=== PATIENT | female | born 1990 | race African-American/Black ===

== ENCOUNTER 2017-01-24 09:30 | Emergency (ER) | payer MEDICAID ==
[~2017-01-24] VITALS: Ht 165.1 cm; Wt 110.0 kg
[~2017-01-24 09:30] MED LIST: IBUP800T23 PO; METH500T3 PO
[2017-01-24 09:34] VITALS: BP 139/82; PULSE 97; RESP 18; TEMP 98.7; O2SAT 97
--- NOTE | 2017-01-24 09:50 | PD ---
HPI Chief Complaint: Pain: Acute or Chronic Time Seen by Provider: 09:50 Travel History International Travel<30 days: No Contact w/Intl Traveler<30days: No Traveled to known affect area: No History of Present Illness HPI 26-year-old female came to the emergency room with history of lower back pain radiating to both legs down coming from the front of the legs. She is also complaining of bilateral lower abdominal pain associated with this. Pain worsens when she is standing for too long. It's better when she is laying down. This has been going on for past 1 week. No history of fever or chills. No history of trauma. Vital signs otherwise stable. [facility] Past Medical History Narrative Medical List of her past medical, surgical, social and family history is reviewed from the nursing note. Diminished Hearing: No Immunizations Current: No ?: Unknown : 1 Para: 1 Miscarriage: 0 : 0 Past Surgical History Section: Yes (X 1) Social History Alcohol Use: No Tobacco Use: No Substance Use: No (HX OF MARIJUANA) Allergies-Medications (Allergen,Severity, Reaction): Coded Allergies: No Known Allergies (Verified , 01/24/17) Comments No known drug allergies. Reported Meds & Prescriptions Reported Meds & Active Scripts Active Flexeril (Cyclobenzaprine HCl) 5 Mg Tab 5 Mg PO TID Ibuprofen 600 Mg Tab 600 Mg PO Q6H PRN Methocarbamol 500 Mg Tab 500 Mg PO QID PRN Ibuprofen 800 Mg Tab 800 Mg PO Q6H PRN Narrative Medication List of her home medications reviewed from the nursing note. Review of Systems Except as stated in HPI: all other systems reviewed are Neg Physical Exam Narrative GENERAL: Awake, alert, morbidly obese, no obvious distress SKIN: Focused skin assessment warm/dry. HEAD: Atraumatic. Normocephalic. EYES: Pupils equal and round. No scleral icterus. No injection or drainage. ENT: No nasal bleeding or discharge. Mucous membranes pink and moist. NECK: Trachea midline. No JVD. CARDIOVASCULAR: Regular rate and rhythm. No murmur appreciated. RESPIRATORY: No accessory muscle use. Clear to auscultation. Breath sounds equal bilaterally. GASTROINTESTINAL: Abdomen soft, non-tender, nondistended. Hepatic and splenic margins not palpable. MUSCULOSKELETAL: No obvious deformities. No clubbing. No cyanosis. No edema. NEUROLOGICAL: Awake and alert. No obvious cranial nerve deficits. Motor grossly within normal limits. Normal speech. PSYCHIATRIC: Appropriate mood and affect; insight and judgment normal. Data Data Last Documented VS Vital Signs Date Time Temp Pulse Resp B/P Pulse Ox O2 Delivery O2 Flow Rate FiO2 01/24/17 09:51 18 01/24/17 09:34 98.7 97 139/82 97 Orders Urinalysis - C+S If Indicated (01/24/17 09:58) Ketorolac Inj (Toradol Inj) (01/24/17 10:00) Morphine Inj (Morphine Inj) (01/24/17 10:00) Orphenadrine Inj (Norflex Inj) (01/24/17 10:00) Labs Laboratory Tests Test 01/24/17 10:00 Urine Color LIGHT-YELLOW Urine Turbidity CLEAR Urine pH 7.0 Urine Specific [place] 1.019 Urine Protein NEG mg/dL Urine Glucose (UA) NEG mg/dL Urine Ketones NEG mg/dL Urine Occult Blood MOD Urine Nitrite NEG Urine Bilirubin NEG Urine Urobilinogen LESS THAN 2.0 MG/DL Urine Leukocyte Esterase MOD Urine RBC 15 /hpf Urine WBC 4 /hpf Urine Squamous Epithelial 6 /hpf Cells Urine Mucus FEW /lpf Microscopic Urinalysis Comment CULT NOT INDICATED MDM Medical Decision Making Medical Screen Exam Complete: Yes Emergency Medical Condition: Yes Medical Record Reviewed: Yes Differential Diagnosis Lumbar radiculopathy, UTI, low back pain Narrative Course 10:20 AM UA showed some blood. I asked the patient if she could be having her period and she said she might be starting to. Patient was given pain medications IM. She has her friend who is going to come and pick her up. She' ll be discharged home on prescription and some restriction for work. Procedures EKG Prior to Arrival: No Diagnosis Primary Impression: Low back pain radiating to lower extremity Referrals: Primary Care Physician 1 week Departure Forms: School Release, Return to School Date: January 27, 2017 Tests/Procedures Additional Instructions: Please return to the ER if symptoms worsen or any other new concerns. Otherwise get some bedrest for next couple days. Be sure to sleep on a firm surface. Do not lift anything heavy that's more than 2-3 pounds. Follow-up with your primary care in couple days. Take the medications as per the prescription direction. Med/Other Pt SpecificInfo: Prescription(s) given Scripts Cyclobenzaprine (Flexeril)5 Mg Tab5 Mg PO TID #15 TAB Ref 0 Prov:Pratibha Tucker MD 01/24/17 Ibuprofen 600 Mg [id number] Mg PO Q6H PRN (Pain/Inflammation) #40 TAB Ref 0 Prov:Pratibha Tucker MD 01/24/17 Disposition: 01 DISCHARGE HOME Condition: Stable Pratibha Tucker MD January 24, 2017 09:50
[2017-01-24] MEDS ORDERED: MORPHINE SULFATE 8 MG/ML INJ IM ONE (10:00)
[2017-01-24] MEDS ORDERED: ORPHENADRINE INJ 60 MG/2 ML AMP IM ONE (10:00)
[2017-01-24] MEDS ORDERED: KETOROLAC TROMETHAMINE 60 MG/2 ML (IM) VIAL IM ONE (10:00)
[2017-01-24 10:25] LABS: BLOOD, URINE MOD (NEG); COMMENT (UR) CULT NOT INDICATED; CULTURE IF INDICATED CULT NOT INDICATED; GLUCOSE,URINE NEG (NEG); KETONE, URINE NEG (NEG); MUCUS URINE FEW /lpf (OCC); NITRITE,URINE NEG (NEG); SQUAMOUS EPITHELIAL CELL URINE 6 /hpf (0-5); URINE COLOR LIGHT-YELLOW (YELLW/STRAW)
[2017-01-24] MEDS ORDERED: IBUP-232 PO (10:30)
[2017-01-24] MEDS ORDERED: CYCL5TAB PO (10:30)
== END 2017-01-24 10:43 | disposition home or self-care (01) ==
LOC: NEPD 09:30
DX: M54.5 Low back pain (principal); M79.662 Pain in left lower leg; M79.661 Pain in right lower leg
CPT/HCPCS: 81001; 96372; 99284; J1885; J2270; J2360

== ENCOUNTER 2017-06-05 11:11 | Emergency (ER) | payer MEDICAID ==
[~2017-06-05] VITALS: Ht 160 cm; Wt 100.0 kg
[~2017-06-05 11:11] MED LIST changes: +CYCL5TAB PO; +IBUP-232 PO
[2017-06-05 11:12] VITALS: BP 145/87; PULSE 98; RESP 17; TEMP 98.8; O2SAT 98
--- NOTE | 2017-06-05 11:32 | PD ---
HPI Chief Complaint: Complaint Time Seen by Provider: 11:21 Travel History International Travel<30 days: No Contact w/Intl Traveler<30days: No Traveled to known affect area: No History of Present Illness HPI The patient is a 26-year-old [place] female who presents emergency department for lower abdominal pain and cramping. The patient states she is currently starting her menstrual cycle, has a small amount of spotting, and has some bilateral lower pelvic cramping. She also complains of mild dysuria without any frequency or urgency. She denies any abnormal vaginal discharge. Last mental cycle was one month ago, she is currently starting her new menstrual cycle. She denies any nausea, vomiting, diarrhea, or change in bowel habits. Symptoms are moderate, there are no current alleviating or exacerbating factors. She does have a history of previous section. PFSH Past Medical History Diminished Hearing: No Immunizations Current: No ?: Not : 1 Para: 1 Miscarriage: 0 : 0 Past Surgical History Section: Yes (X 1) Social History Alcohol Use: No Tobacco Use: No Substance Use: No (HX OF MARIJUANA) Allergies-Medications (Allergen,Severity, Reaction): Coded Allergies: No Known Allergies (Verified , 01/24/17) Reported Meds & Prescriptions Reported Meds & Active Scripts Active Flexeril (Cyclobenzaprine HCl) 5 Mg Tab 5 Mg PO TID Ibuprofen 600 Mg Tab 600 Mg PO Q6H PRN Methocarbamol 500 Mg Tab 500 Mg PO QID PRN Ibuprofen 800 Mg Tab 800 Mg PO Q6H PRN Review of Systems Except as stated in HPI: all other systems reviewed are Neg General / Constitutional: No: Fever Gastrointestinal: No: Nausea, Vomiting, Diarrhea, Abdominal Pain Genitourinary: Positive: Dysuria, Pelvic Pain, Vaginal Bleeding (spotting), No : Discharge Physical Exam Narrative GENERAL: Awake, alert, nontoxic-appearing 26-year-old female who appears her stated age and is in no acute respiratory distress. SKIN: Focused skin assessment warm/dry. HEAD: Atraumatic. Normocephalic. EYES: No injection or drainage. ENT: No nasal bleeding or discharge. Mucous membranes pink and moist. NECK: Trachea midline. No JVD. CARDIOVASCULAR: Regular rate and rhythm. No murmur appreciated. RESPIRATORY: No accessory muscle use. Clear to auscultation. Breath sounds equal bilaterally. GASTROINTESTINAL: Abdomen soft, non-tender, nondistended. Minimal suprapubic tenderness. Back: No CVA tenderness. MUSCULOSKELETAL: No obvious deformities. No clubbing. No cyanosis. No edema. NEUROLOGICAL: Awake and alert. No obvious cranial nerve deficits. Motor grossly within normal limits. Normal speech. PSYCHIATRIC: Appropriate mood and affect; insight and judgment normal. Data Data Last Documented VS Vital Signs Date Time Temp Pulse Resp B/P (MAP) Pulse Ox O2 Delivery O2 Flow Rate FiO2 06/05/17 11:12 98.8 98 17 145/87 (106) 98 Orders Orders Urinalysis - C+S If Indicated (06/05/17 11:29) Ed Urine Pregnancytest Poc (06/05/17 11:29) Urine Culture (06/05/17 11:39) Labs Laboratory Tests Test 06/05/17 11:39 Urine Color YELLOW Urine Turbidity HAZY Urine pH 5.5 Urine Specific [place] 1.031 Urine Protein 30 mg/dL Urine Glucose (UA) NEG mg/dL Urine Ketones NEG mg/dL Urine Occult Blood NEG Urine Nitrite NEG Urine Bilirubin NEG Urine Urobilinogen 2.0 MG/DL Urine Leukocyte Esterase MOD Urine RBC 2 /hpf Urine WBC 17 /hpf Urine Squamous Epithelial Cells 20 /hpf Urine Bacteria FEW /hpf Urine Mucus MANY /lpf Urine Trichomonas OCC Microscopic Urinalysis Comment CULTURE INDICATED MDM Medical Decision Making Medical Screen Exam Complete: Yes Emergency Medical Condition: Yes Medical Record Reviewed: Yes Interpretation(s) Laboratory Tests Test 06/05/17 11:39 Urine Color YELLOW Urine Turbidity HAZY Urine pH 5.5 Urine Specific [place] 1.031 Urine Protein 30 mg/dL Urine Glucose (UA) NEG mg/dL Urine Ketones NEG mg/dL Urine Occult Blood NEG Urine Nitrite NEG Urine Bilirubin NEG Urine Urobilinogen 2.0 MG/DL Urine Leukocyte Esterase MOD Urine RBC 2 /hpf Urine WBC 17 /hpf Urine Squamous Epithelial Cells 20 /hpf Urine Bacteria FEW /hpf Urine Mucus MANY /lpf Urine Trichomonas OCC Microscopic Urinalysis Comment CULTURE INDICATED Differential Diagnosis Differential diagnosis includes UTI, PID, cervicitis, , ectopic , dysmenorrhea. Narrative Course A UA was sent to lab and bedside UA test was obtained. UA reveals leukocyte esterase and 17 WBCs consistent with UTI. Also reveals trichomonas. Patient will be treated with Flagyl and Bactrim. She is advised to follow-up with a primary physician and return if symptoms worsen or progress. Diagnosis Primary Impression: Trichomonas infection Additional Impression: UTI (urinary tract infection) Qualified Codes: N30.00 - Acute cystitis without hematuria Patient Instructions: General Instructions Additional Instructions: Medications as directed. Follow-up with your primary physician. Return if symptoms worsen or progress. Med/Other Pt SpecificInfo: Prescription(s) given Scripts Metronidazole (Flagyl) 500 Mg Tab 500 MG PO BID for Infection for 7 Days, #14 TAB 0 Refills Prov: Eleazar Johnston MD 06/05/17 Sulfamethoxazole-Trimethoprim (Bactrim DS) 800-160 Mg Tab 1 TAB PO BID for Infection, #14 TAB 0 Refills Prov: Eleazar Johnston MD 06/05/17 Disposition: 01 DISCHARGE HOME Condition: Stable Eleazar Johnston MD Jun 05, 2017 11:32
[2017-06-05 12:01] LABS: BLOOD, URINE NEG (NEG); GLUCOSE,URINE NEG (NEG); KETONE, URINE NEG (NEG); MUCUS URINE MANY /lpf (OCC); NITRITE,URINE NEG (NEG); PH, URINE 5.5 (5.0-8.5); SQUAMOUS EPITHELIAL CELL URINE 20 /hpf (0-5); URINE COLOR YELLOW (YELLW/STRAW)
[2017-06-05 12:02] LABS: BACTERIA, URINE FEW /hpf; COMMENT (UR) CULTURE INDICATED; CULTURE IF INDICATED CULTURE INDICATED
[2017-06-05] MEDS ORDERED: METR-1 PO (12:14)
[2017-06-05] MEDS ORDERED: BACT800T5 PO (12:14)
== END 2017-06-05 12:27 | disposition home or self-care (01) ==
LOC: NEPD 11:11
DX: A59.9 Trichomoniasis, unspecified (principal); N30.00 Acute cystitis without hematuria; R10.30 Lower abdominal pain, unspecified
CPT/HCPCS: 81001; 84703; 87086; 99284

== ENCOUNTER 2017-07-08 10:10 | Emergency (ER) | payer OTHER, MEDICAID ==
[~2017-07-08] VITALS: Ht 160 cm; Wt 95.5 kg
[~2017-07-08 10:10] MED LIST changes: +BACT800T5 PO; +METR-1 PO
[2017-07-08 10:11] VITALS: BP 130/70; PULSE 73; RESP 14; TEMP 98.2; O2SAT 98
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
[2017-07-08] MEDS ORDERED: IBUP-232 PO (10:48)
[2017-07-08] MEDS ORDERED: ROBA750T PO (10:48)
== END 2017-07-08 14:12 | disposition home or self-care (01) ==
LOC: NEPK 10:10
DX: S16.1XXA Strain of muscle, fascia and tendon at neck level, initial encounter (principal); S20.01XA Contusion of right breast, initial encounter; S00.512A Abrasion of oral cavity, initial encounter; V49.49XA Driver injured in collision with other motor vehicles in traffic accident, initial encounter; Y92.410 Unspecified street and highway as the place of occurrence of the external cause
CPT/HCPCS: 99283

== ENCOUNTER 2017-11-28 07:38 | Emergency (ER) | payer MEDICAID ==
[~2017-11-28] VITALS: Ht 160 cm; Wt 90.0 kg
[~2017-11-28 07:38] MED LIST changes: -BACT800T5 PO; -CYCL5TAB PO; -IBUP800T23 PO; -METH500T3 PO; -METR-1 PO; +ROBA750T PO
[2017-11-28 07:41] VITALS: BP 144/89; PULSE 88; RESP 15; TEMP 98.6; O2SAT 100
[2017-11-28] MEDS ORDERED: LIDOCAINE HCL 1% 50 ML VIAL IM ONE (08:15)
[2017-11-28] MEDS ORDERED: AZITHROMYCIN PWD FOR SUSP 1 GM PACKET PO ONE (08:15)
[2017-11-28] MEDS ORDERED: cefTRIAXone 250 MG VIAL IM ONE (08:15)
--- NOTE | 2017-11-28 08:28 | PD ---
HPI Chief Complaint: Cold / Flu Symptoms Time Seen by Provider: 08:05 Travel History International Travel<30 days: No Contact w/Intl Traveler<30days: No Traveled to known affect area: No History of Present Illness HPI 27-year-old female presents to the emergency room for evaluation of cold symptoms for the past 3 days. Patient got sent home early from work today because of her symptoms. They include nonproductive cough, congestion, sore throat, bilateral eye itchiness, and runny nose. She has not taken anything [id number] for her symptoms. She denies fever, chills, nausea, vomiting, or body aches. States she would also like to be checked for an STD. She has been having significant increase in clear vaginal discharge over the past couple days with associated pelvic tenderness. No dysuria, urgency, or frequency. She has had 1 partner the past 6 months. Her last menstrual cycle was 1 month ago. PFSH Past Medical History Diminished Hearing: No Immunizations Current: No ?: Not : 1 Para: 1 Miscarriage: 0 : 0 Past Surgical History Section: Yes (X 1) Social History Alcohol Use: No Tobacco Use: No Substance Use: Yes (5x week marijuana) Allergies-Medications (Allergen,Severity, Reaction): Coded Allergies: No Known Allergies (Verified Adverse Reaction, Unknown, 11/28/17) Reported Meds & Prescriptions Reported Meds & Active Scripts Active Tessalon Perles (Benzonatate) 100 Mg Cap 100 Mg PO TID PRN 5 Days Flagyl (Metronidazole) 500 Mg Tab 500 Mg PO BID 7 Days Robaxin (Methocarbamol) 750 Mg Tab 750 Mg PO Q8HR 5 Days Ibuprofen 600 Mg Tab 600 Mg PO Q8HR PRN 7 Days Review of Systems Except as stated in HPI: all other systems reviewed are Neg Physical Exam Narrative GENERAL: Well-nourished, well-developed female no acute distress. Afebrile. Ambulatory. SKIN: Focused skin assessment warm/dry. HEAD: Normocephalic. EYES: No scleral icterus. No injection or drainage. ENT: Mucosa pink and moist. No erythema or exudates. No uvular edema. No uvular , palatal, or tonsillar deviation. Airway patent. Nasal turbinates appear normal without nasal blood, purulent drainage or septal hematoma. EARS: Bilateral pinnae and external canals appear within normal limits. Bilateral tympanic membranes without erythema, dullness or perforation. NECK: Supple, trachea midline. No JVD or lymphadenopathy. CARDIOVASCULAR: Regular rate and rhythm without murmurs, gallops, or rubs. RESPIRATORY: Breath sounds equal bilaterally. No accessory muscle use. No crackles, rales, wheezes, or rhonchi. GENITOURINARY: Normal external genitalia without lesions or erythema. Vaginal vault without blood but there is significant yellow-green drainage. Cervical os was closed with the same drainage. No cervical motion tenderness. Uterus nontender and nonenlarged. Bilateral adnexa nontender without masses. Data Data Last Documented VS Vital Signs Date Time Temp Pulse Resp B/P (MAP) Pulse Ox O2 Delivery O2 Flow Rate FiO2 11/28/17 09:00 18 99 Room Air 11/28/17 07:41 98.6 88 144/89 (107) Orders Orders Gc And Chlamydia Pcr (11/28/17 08:09) Wet Prep Profile (11/28/17 08:09) Azithromycin Powd Pack (Zithromax Powd P (11/28/17 08:15) Ceftriaxone Inj (Rocephin Inj) (11/28/17 08:15) Lidocaine 1% Inj (50 Ml) (Xylocaine 1% I (11/28/17 08:15) Ed Urine Pregnancytest Poc (11/28/17 08:09) Ed Discharge Order (11/28/17 10:06) Labs Laboratory Tests Test 11/28/17 09:00 Clue Cells (Wet Prep) PRESENT Vaginal Trichomonas (Wet Prep) NONE SEEN Vaginal Yeast (Wet Prep) NONE SEEN MDM Medical Decision Making Medical Screen Exam Complete: Yes Emergency Medical Condition: Yes Medical Record Reviewed: Yes Differential Diagnosis URI, pneumonia, bronchitis, cough Narrative Course 27-year-old female presents to the emergency room for evaluation of 2 separate complaints. First complaint is upper respiratory infection symptoms for the past 3 days. Second complaint is vaginal discharge for the past 2-3 days. Patient is concerned about an STD. She has moderate amount of yellow tinged vaginal discharge with a foul odor. test is negative. Wet prep shows clue cells. Patient treated empirically for gonorrhea and chlamydia with azithromycin and ceftriaxone. Discharged with prescription for Flagyl and told to follow-up with a primary care physician or return for worsening symptoms. She understands and agrees to plan. Diagnosis Primary Impression: Bacterial vaginosis Additional Impression: Upper respiratory infection Qualified Codes: J00 - Acute nasopharyngitis [common cold] Referrals: Primary Care Physician Additional Instructions: Rest and drink plenty of fluids. Flagyl as directed, until gone. Do not drink alcohol while taking this medication. Follow-up with a primary care physician. Return to the emergency room for worsening symptoms. Scripts Benzonatate (Tessalon Perles) 100 Mg Cap 100 MG PO TID Y for COUGH for 5 Days, CAP 0 Refills Prov: Nitesh Garcia MD 11/28/17 Metronidazole (Flagyl) 500 Mg Tab 500 MG PO BID for Infection for 7 Days, #14 TAB 0 Refills Prov: Nitesh Garcia MD 11/28/17 Disposition: 01 DISCHARGE HOME Condition: Stable Deidra Nieves Nov 28, 2017 08:28
[2017-11-28] MEDS ORDERED: METR-1 PO (09:55)
[2017-11-28] MEDS ORDERED: BENZ100 PO (10:08)
== END 2017-11-28 10:37 | disposition home or self-care (01) ==
LOC: NEPD 07:38
DX: J06.9 Acute upper respiratory infection, unspecified (principal); N76.0 Acute vaginitis; B96.89 Other specified bacterial agents as the cause of diseases classified elsewhere
CPT/HCPCS: 84703; 87210; 87491; 87591; 96372; 99284; J0696

== ENCOUNTER 2018-03-12 22:48 | Emergency (ER) | payer MEDICAID ==
[~2018-03-12] VITALS: Ht 165.1 cm; Wt 72.0 kg
[~2018-03-12 22:48] MED LIST changes: +BENZ100 PO; +METR-1 PO
[2018-03-12 22:54] VITALS: BP 126/71; PULSE 87; RESP 16; TEMP 98.2; O2SAT 100
--- NOTE | 2018-03-12 23:19 | PD ---
HPI Chief Complaint: Abdominal Pain Time Seen by Provider: 23:01 Travel History International Travel<30 days: No Contact w/Intl Traveler<30days: No Traveled to known affect area: No History of Present Illness HPI 27 years old female complains of low abdominal pain. Patient states that the pain started several days ago. Patient states that the pain is cramping pain localized to the lower abdomen. Patient denies any pain radiation. Patient denies any fever chills. Patient denies any dysuria frequency. Patient denies any vaginal discharge or bleeding. Patient states that her last menstruation period was 6 weeks ago. Patient has history of irregular menstruation period In the past. PFSH Past Medical History Diminished Hearing: No Immunizations Current: No Tetanus Vaccination: Unknown Influenza Vaccination: No ?: Unknown LMP: 01/30/18 Menopausal: No : 1 Para: 1 Miscarriage: 0 : 0 Past Surgical History Section: Yes (X 1) Social History Alcohol Use: No Tobacco Use: No Substance Use: Yes (5x week marijuana) Allergies-Medications (Allergen,Severity, Reaction): Coded Allergies: No Known Allergies (Verified Adverse Reaction, Unknown, 03/12/18) Reported Meds & Prescriptions Reported Meds & Active Scripts Active Tessalon Perles (Benzonatate) 100 Mg Cap 100 Mg PO TID PRN 5 Days Flagyl (Metronidazole) 500 Mg Tab 500 Mg PO BID 7 Days Robaxin (Methocarbamol) 750 Mg Tab 750 Mg PO Q8HR 5 Days Ibuprofen 600 Mg Tab 600 Mg PO Q8HR PRN 7 Days Review of Systems General / Constitutional: No: Fever Eyes: No: Visual changes HENT: No: Headaches Cardiovascular: No: Chest Pain or Discomfort Respiratory: No: Shortness of Breath Gastrointestinal: Positive: Abdominal Pain Genitourinary: No: Dysuria Musculoskeletal: No: Pain Skin: No Rash Neurologic: No: Weakness Psychiatric: No: Depression Endocrine: No: Polydipsia Hematologic/Lymphatic: No: Easy Bruising Physical Exam Narrative GENERAL: Well-nourished, well-developed patient. SKIN: Focused skin assessment warm/dry. HEAD: Normocephalic. EYES: No scleral icterus. No injection or drainage. NECK: Supple, trachea midline. No JVD or lymphadenopathy. CARDIOVASCULAR: Regular rate and rhythm without murmurs, gallops, or rubs. RESPIRATORY: Breath sounds equal bilaterally. No accessory muscle use. GASTROINTESTINAL: Abdomen soft, nondistended. Patient has mild tenderness on palpation lower abdomen suprapubic area. No rebound tenderness. No mass. MUSCULOSKELETAL: No cyanosis, or edema. BACK: Nontender without obvious deformity. No CVA tenderness. PIPELINE OPERATOR exam: Deferred. Data Data Last Documented VS Vital Signs Date Time Temp Pulse Resp B/P (MAP) Pulse Ox O2 Delivery O2 Flow Rate FiO2 03/12/18 22:54 98.2 87 16 126/71 (89) 100 Orders Orders Urinalysis - C+S If Indicated (03/12/18 23:09) Ed Urine Pregnancytest Poc (03/12/18 23:09) [facility] [place] Medical Decision Making Medical Screen Exam Complete: Yes Emergency Medical Condition: Yes Differential Diagnosis Differential diagnosis including UTI, pyelonephritis, nephrolithiasis, , threatened AB, incomplete AB, complete AB, ectopic . Narrative Course 27-year-old female with low abdominal pain. Last menstruation period was 6 weeks ago. Urine test positive. Diagnosis Primary Impression: related pelvic pain in first trimester, antepartum Patient Instructions: General Instructions Additional Instructions: vitamin as directed. Advised patient to follow up with sales solutions associate. Return if increased abdominal pain, pelvic pain, fever, vaginal discharge or bleeding. Med/Other Pt SpecificInfo: No Meds Exist/No RX given Disposition: 01 DISCHARGE HOME Condition: Stable Abrahan Russell MD Mar 12, 2018 23:19
[2018-03-12 23:35] LABS: BILIRUBIN, URINE NEG (NEG); BLOOD, URINE NEG (NEG); GLUCOSE,URINE NEG (NEG); KETONE, URINE NEG (NEG); MUCUS URINE MANY /lpf (OCC); NITRITE,URINE NEG (NEG); SQUAMOUS EPITHELIAL CELL URINE 12 /hpf (0-5); URINE COLOR Amber (YELLW/STRAW); URINE LEUKOCYTE ESTERASE SMALL (NEG)
== END 2018-03-12 23:50 | disposition home or self-care (01) ==
LOC: NEPD 22:48
DX: R10.2 Pelvic and perineal pain (principal); N92.6 Irregular menstruation, unspecified; F12.90 Cannabis use, unspecified, uncomplicated; Z33.1 Pregnant state, incidental
CPT/HCPCS: 81001; 84703; 99283